=== PATIENT | male | born 1970 ===

== ENCOUNTER → 2023-10-02 | Outpatient (CLI) | payer BC ==
--- NOTE | 2023-10-02 14:33 | CT ---
EXAMINATION TYPE: CT brain wo con DATE OF EXAM: 10/02/2023 COMPARISON: None HISTORY: Dizziness, weakness in both legs, right ear tinnitus CT DLP: 1098.[address] of the brain was performed. The ventricles, basal cisterns and sulci overlying the cerebral convexities demonstrate mild enlargem ent. There is no evidence for intracranial hemorrhage or sulcal effacement. There is decreased attenuation about the periventricular white matter and deep white matter of both c erebral hemispheres, compatible with chronic small vessel ischemia. Differential diagnosis does inclu de demyelination. No mass effects are seen.No midline shift. Osseous calvarium is intact. If symptoms persist consider MRI. IMPRESSION: 1. Age related atrophic and chronic small vessel ischemic change without acute intracranial process s een at this time.
--- NOTE | 2023-10-02 16:43 | US ---
EXAMINATION TYPE: US carotid duplex BILAT DATE OF EXAM: 10/02/2023 COMPARISON: NONE CLINICAL INDICATION: Male, 53 years old with history of G45.9 TIA; TIA TECHNIQUE: Carotid duplex ultrasound examination. Indirect Doppler criteria was utilized. FINDINGS: EXAM MEASUREMENTS: RIGHT: Peak Systolic Velocity (PSV) cm/sec ----- Right CCA: 82.6 ----- Right ICA: 107 ----- Right ECA: 76.0 ICA/CCA ratio: 1.3 RIGHT: End Diastole cm/sec ----- Right CCA: 25.5 ----- Right ICA: 28.4 ----- Right ECA: 10.7 LEFT: Peak Systolic Velocity (PSV) cm/sec ----- Left CCA: 77.9 ----- Left ICA: 85.7 ----- Left ECA: 86.4 ICA/CCA ratio: 1.1 LEFT: End Diastole cm/sec ----- Left CCA: 24.9 ----- Left ICA: 30.8 ----- Left ECA: 11.4 VERTEBRALS (direction of flow): Right Vertebral: Antegrade Left Vertebral: Antegrade Rhythm: Normal RUBBER WORKER NOTES: no plaque, stenosis, elevated velocities or ratios IMPRESSION: Less than 50% stenosis at the carotid bifurcation. Criteria for Assigning % of Stenosis / Diameter reduction (Estimation based on the indirect measurements of the internal carotid artery velocities (ICA PSV). 1. Normal (no stenosis)=ICA PSV < 125 cm/s: ratio < 2.0: ICA EDV<40 cm/s. 2. Less than 50% stenosis=ICA PSV < 125 cm/s: ratio < 2.0: ICA EDV<40 cm/s. 3. 50 to 69% stenosis=ICA PSV of 125 to 230 cm/s: ration 2.0 ? 4.0: ICA EDV 40-100 cm/s. 4. Greater than 70% stenosis to near occlusion= ICA PSV > 230 cm/s: ratio > 4.0: ICA EDV > 100 cm/s. 5. Near occlusion= ICA PSV velocities may be low or undetectable: variable ratio and ICA EDV. 6. Total occlusion=unable to detect flow.
--- NOTE | 2023-10-03 07:41 | CA ---
Transthoracic Echo Report Name: Rashid Chun Age: 53 Gender: M : 1970 Exam Date: 10/02/2023 14:45 Exam Location: [facility] Ht (in): 64 Wt (lb): 185 Ordering Physician: Sherman Chun MD Attending/Referring Phys: Control Room Supervisor Teresa Frye RDCS Procedure CPT: Indications: G45.9 TRANSIENT CEREBRAL ISCHEMIC ATTACK, UNSPECIF Cardiac Hx: Technical Quality: Good Contrast 1: Agitated Saline Total Dose (mL): 10 Contrast 2: Total Dose (mL): MEASUREMENTS (Male / Female) Normal Values 2D ECHO LV Diastolic Diameter PLAX 5.3 cm 4.2 - 5.9 / 3.9 - 5.3 cm LV Systolic Diameter PLAX 3.5 cm IVS Diastolic Thickness 0.8 cm 0.6 - 1.0 / 0.6 - 0.9 cm LVPW Diastolic Thickness 1.0 cm 0.6 - 1.0 / 0.6 - 0.9 cm LV Relative Wall Thickness 0.3 LVOT Diameter 2.2 cm LV Diastolic Volume MOD BP 167.2 cm??? 67 - 155 / 56 - 104 cm??? LV Systolic Volume MOD BP 61.1 cm??? 22 - 58 / 19 - 49 cm??? LV Ejection Fraction MOD BP 63.5 % >= 55 % LV Cardiac Index MOD BP 2361.3 cm???/min???m??? LV Diastolic Volume MOD 4C 179.1 cm??? LV Systolic Volume MOD 4C 67.5 cm??? LV Ejection Fraction MOD 4C 62.3 % LV Cardiac Index MOD 4C 2483.6 cm???/min???m??? LV Diastolic Length 4C 9.0 cm LV Systolic Length 4C 7.0 cm LV Diastolic Volume MOD 2C 156.6 cm??? LV Systolic Volume MOD 2C 54.0 cm??? LV Ejection Fraction MOD 2C 65.5 % LV Cardiac Index MOD 2C 2282.9 cm???/min???m??? LV Diastolic Length 2C 9.0 cm LV Systolic Length 2C 6.8 cm LA Volume 86.5 cm??? 18 - 58 / 22 - 52 cm??? LA Volume Index 43.8 cm???/m??? 16 - 28 cm???/m??? Ascending Aorta Diameter 3.5 cm DOPPLER AV Peak Velocity 121.2 cm/s AV Peak Gradient 5.9 mmHg AV Mean Velocity 83.8 cm/s AV Mean Gradient 3.2 mmHg AV Velocity Time Integral 28.2 cm LVOT Peak Velocity 103.0 cm/s LVOT Peak Gradient 4.2 mmHg LVOT Velocity Time Integral 23.4 cm LVOT Stroke Volume 92.1 cm??? LVOT Stroke Volume Index 48.7 ml/m??? LVOT Cardiac Index 2049.3 cm???/min???m??? AV Area Cont Eq vti 3.3 cm??? AV Area Cont Eq pk 3.3 cm??? MV Area PHT 4.3 cm??? Mitral E Point Velocity 64.1 cm/s Mitral A Point Velocity 41.8 cm/s Mitral E to A Ratio 1.5 MV Deceleration Time 175.9 ms TR Peak Velocity 204.3 cm/s TR Peak Gradient 16.7 mmHg Right Atrial Pressure 5.0 mmHg Pulmonary Artery Systolic Pressu 21.7 mmHg Right Ventricular Systolic Press 21.7 mmHg PV Peak Velocity 105.1 cm/s PV Peak Gradient 4.4 mmHg FINDINGS Left Ventricle Left ventricular ejection fraction is estimated at 60-65 %. Mildly increased left ventricular diastolic volume. Mildly increased left ventricular systolic volume. No obvious regional wall motion abnormalities. Left ventricular wall thickness normal. Right Ventricle Normal right ventricular size and function. Right ventricular systolic pressure within normal limits. Right Atrium Right atrial dilatation. Left Atrium Severely increased left atrial volume. Mildly increased left atrial area. Mitral Valve Structurally normal mitral valve. No evidence for mitral valve prolapse. No mitral stenosis. Moderate mitral regurgitation. Aortic Valve Trileaflet aortic valve. No aortic valve stenosis or regurgitation. Tricuspid Valve Structurally normal tricuspid valve. No tricuspid stenosis. Trace tricuspid regurgitation. Pulmonic Valve Structurally normal pulmonic valve. No pulmonic stenosis. Trace pulmonic regurgitation. Pericardium No pericardial effusion. Aorta Normal size aortic root and proximal ascending aorta. CONCLUSIONS Normal LV systolic function. Mild LVH Moderate mitral regurgitation with a central jet Normal pulmonary artery systolic pressure Previewed by: Dr. Homero Friedman MD (Electronically Signed) Final Date: 03 October 2023 07:40
== END | disposition home or self-care (01) ==
LOC: RADCTMAIN 14:13
PROVIDERS: ATTEND Family Medicine
DX: I67.82 Cerebral ischemia (principal)
CPT/HCPCS: 70450; 93306; 93880

== ENCOUNTER → 2024-02-12 | Outpatient (CLI) | payer BC ==
[2024-02-12 13:22] LABS: Partial Thromboplastin Time 26.9 sec (22.0-30.0)
[2024-02-12 15:10] LABS: Appearance,Urine Clear (Clear); Bilirubin,Urine Negative (Negative); Blood,Urine Negative (Negative); Color,Urine Yellow (Yellow); Ketones,Urine Negative (Negative); Nitrite,Urine Negative (Negative); Specific Gravity,Urine 1.006 (1.001-1.030); Urobilinogen,Urine 0.2 E.U./DL
[2024-02-12 15:20] LABS: Bacteria,Urine None Seen (None Seen)
[2024-02-12 15:38] LABS: Basophils # (A) 0.07 X 10*3/uL (0.00-0.10); Basophils % (A) 0.8 %; Eosinophils # (A) 1.07 X 10*3/uL (0.04-0.35); Eosinophils % (A) 12.1 %; HCT 44.9 % (39.6-50.0); HGB 15.3 g/dL (13.0-17.0); Lymphocytes # (A) 1.67 X 10*3/uL (0.90-5.00); Lymphocytes % (A) 18.8 %; MCH 29.9 pg (27.0-32.0); MCHC 34.1 g/dL (32.0-37.0); MCV 87.9 FL (80.0-97.0); Monocytes # (A) 0.58 X 10*3/uL (0.20-1.00); Monocytes % (A) 6.5 %; NRBC Per 100 WBC 0 X 10*3/uL (0.00-0.01); Neutrophils # (A) 5.43 X 10*3/uL (1.80-7.70); Neutrophils % (A) 61.3 %; Platelet Count 255 X 10*3/uL (140-440); RBC 5.11 X 10*6/uL (4.40-5.60); RDW 13.1 % (11.5-14.5); WBC 8.86 X 10*3/uL (4.50-10.00)
[2024-02-12 16:36] LABS: BUN/Creat Ratio 9.33 Ratio (12.00-20.00); Blood Urea Nitrogen 8.4 mg/dL (9.0-27.0); Calcium 9.6 mg/dL (8.7-10.3); Carbon Dioxide 23.9 mmol/L (21.6-31.8); Chloride 103 mmol/L (96-109); Glucose 90 mg/dL (70-110); Potassium 4.6 mmol/L (3.5-5.5); Sodium 140 mmol/L (135-145)
--- NOTE | 2024-02-12 16:57 | XR ---
EXAMINATION TYPE: XR chest 2V DATE OF EXAM: 02/12/2024 COMPARISON: None HISTORY: 54-year-old male Z01.818, preoperative evaluation TECHNIQUE: Frontal and lateral views FINDINGS: The cardiomediastinal silhouette, aorta, and pulmonary vasculature are within normal limits. Lungs an d pleural spaces are clear. IMPRESSION: No acute cardiopulmonary process. [facility], , 02/12/2024 4:55 PM
[2024-02-12 18:20] LABS: INR 0.9 (<1.2); Prothrombin Time 10.4 sec (10.0-12.5)
== END | disposition home or self-care (01) ==
LOC: LABPAT 12:35
PROVIDERS: ATTEND Orthopaedic Surgery Orthopaedic Surgery of the Spine
CPT/HCPCS: 36415; 71046; 80048; 81001; 85025; 85610; 85730; 86850; 86900; 86901; 87070

== ENCOUNTER 2024-02-21 05:42 | Observation (INO) | payer BC ==
[2024-02-16 10:31] VITALS: BMI 32.5
[2024-02-21] MEDS: LACTATED RINGERS 1,000 ML IV SCH (06:37)
[2024-02-21] MEDS: IV FLUID CONTINUATION 1,000 ML IV ONE ×2 (06:37)
[2024-02-21] MEDS: ONDANSETRON 4 MG/2 ML VIAL IVP ONE (06:45)
[2024-02-21] MEDS: DEXAMETHASONE SOD PHOSPHATE 4 MG/ML 1 ML VIAL IV ONE (06:46)
[2024-02-21] MEDS ORDERED: ACETAMINOPHEN IV (For NPO) 1,000 MG/100 ML VIAL ONE (07:24)
[2024-02-21] MEDS ORDERED: ePHEDrine 50 MG/ML 1 ML VIAL ONE (07:24)
[2024-02-21] MEDS ORDERED: TRANEXAMIC 1,000 MG/100ML-NACL PREMIX BAG ONE (07:24)
[2024-02-21] MEDS ORDERED: PHENYLEPHRINE 10 MG/ML VIAL ONE (07:24)
[2024-02-21] MEDS ORDERED: SUCCINYLCHOLINE CHLORIDE 200 MG/10 ML VIAL IV ONE (07:24)
[2024-02-21] MEDS ORDERED: KETAMINE HCL IN 0.9 % NACL 50 MG/5 ML SYRINGE ONE (07:24)
[2024-02-21] MEDS ORDERED: PROPOFOL 10 MG/ML 20 ML VIAL IV ONE (07:24)
[2024-02-21] MEDS ORDERED: MIDAZOLAM 2 MG/2 ML VIAL ONE (07:24)
[2024-02-21] MEDS ORDERED: fentaNYL (PF) 50 MCG/ML 2 ML AMP ONE (07:24)
[2024-02-21] MEDS ORDERED: ROCURONIUM 10 MG/ML (5 ML VIAL) IV ONE (07:24)
[2024-02-21] MEDS ORDERED: NEOSTIGMINE 1 MG/ML 10 ML VIAL ONE (07:24)
[2024-02-21] MEDS ORDERED: GLYCOPYRROLATE 0.2 MG/ML 2 ML VIAL ONE (07:24)
[2024-02-21] MEDS ORDERED: LIDOCAINE 1% INJ 10MG/ML (20 ML MDV) ONE (07:24)
[2024-02-21] MEDS: ceFAZolin 1,000 MG in SODIUM CHLORIDE 0.9% 1,000 ML IRRIGATION ONE ×2 (07:30→13:39)
[2024-02-21] MEDS: THROMBIN (BOVINE) 5,000 UNIT VIAL MISCELLANE ONE (08:12)
[2024-02-21] MEDS: BUPIVACAINE (PF) 0.25% 30 ML VIAL SQ ONE (08:12)
[2024-02-21] MEDS: LIDOCAINE 2%-EPI 1:100,000 20 ML VIAL SQ ONE (08:12)
[2024-02-21] MEDS ORDERED: TRANEXAMIC 1,000 MG/100ML-NACL 1,000 MG in SALINE 1 100ML.BAG IVPB PRN (08:35)
[2024-02-21] MEDS: LACTATED RINGERS 1,000 ML IV ONE (09:00)
[2024-02-21] MEDS ORDERED: BENZOCAINE/MENTHOL LOZENG 1 EACH LOZENGE MUCOUS MEM PRN (11:32)
[2024-02-21] MEDS ORDERED: ONDANSETRON 4 MG/2 ML VIAL IVP PRN (11:32)
[2024-02-21] MEDS ORDERED: CYCLOBENZAPRINE 10 MG TAB PO PRN (11:35)
--- NOTE | 2024-02-21 11:49 | P.OP ---
Date of Procedure: 02/21/24 Preoperative Diagnosis: Grade 3 spondylolisthesis L5-S1, spinal stenosis L4-5 L5-S1, low back pain, degenerative disc disease, facet arthrosis, right lower extremity radiculopathy Postoperative Diagnosis: Same Anesthesia: GETA Pathology: none sent Condition: stable Disposition: PACU Description of Procedure: DESCRIPTION OF PROCEDURE(S): BRIEF OPERATIVE NOTE Preoperative Diagnosis: Grade 3 spondylolisthesis L5-S1, spinal stenosis L4-5 L5-S1, low back pain, degenerative disc disease, facet arthrosis, right lower extremity radiculopathy Postoperative Diagnosis: Same Procedure: Laminectomy and decompression L4-5 L5-S1 with wide bilateral foraminotomies Computer CT navigation aided open posterior lateral decompression and fusion L4-5 L5-S1 Transforaminal lumbar interbody fusion for a 360 fusion at L4-5 Discectomy for decompression at L4-5 Placement of interbody graft L4-5 Use of computer navigation for fusion L4-5 S1 Local autogenous bone grafting Aspiration of bone marrow from the vertebral body pedicle at L4 on the right Use of bone graft extenders Surgeon: Dr. Bush Trailer Truck Driver: Louie BALL who is present throughout the entire the case persistence during positioning, dissection, exposure, visualization, and all crucial elements of the case as well as closure. Anesthesia: General anesthesia Estimated blood loss: Approximately 350 mL Complications: None apparent Components implanted: K2M cannulated [place] pedicle screw system withscrews measuring 6.5 mm, 5.5 mm and 7.5 mm in diameter to rods one expandable interbody cage with 10 mL of osteo amp bio4 bone graft substitute and 30 mL of the BX bone fibers to supplement the local autogenous bone graft and bone marrow aspirate Disposition: To recovery room in good stable condition. OPERATIVE INDICATIONS The patient has had severe issues at their lower extremity in her lower back over the past several years with significant worsening over the past several months. Over the past few months the patient had pain at their back and their lower extremities. The patient is having severe radicular symptoms at their lower extremity with weakness. The patient was having great difficulty with regular activities and with his work. The patient is having significant pain in their back. They are unable to obtain any comfort. We did aggressive conservative treatment with medications therapy and interventional pain management however thery were not having any relief. The patient also showed evidence of a grade 3 listhesis at L5-S1 . The patient has been through conservative treatment. We discussed various treatment options including surgery, and the patient wishes to proceed with surgery We discussed the risk, patient's alternatives and benefits of surgery including but not limited to, risk of bleeding risk of infection, risk of need for further surgery, risk of decreased, loss of motion, muscle function, malunion nonunion, hardware failure, nerve damage, paralysis, heart attack, blindness and . They understood i ssues with the current pandemic and the possibility of exposure. OPERATIVE SUMMARY After discussing all the risks, patient alternatives and benefits at length, the patient elected to proceed with surgical intervention, signed informed consent, and presented for their procedure. The patient was seen and examined in the preoperative holding area and the surgical site was marked. The patient was given antibiotics and brought to the operating room. The patient was sedated and intubated by anesthesia in standard fashion. The patient was positioned on to the operating room table in a prone position on the appropriate frame which was well-padded and well molded. We were careful to pad any bony prominences and pressure points. We were careful to maintain the patient's cervical spine and good neutral alignment and position throughout. The patient was prepped and draped in a normal standard fashion. An appropriate timeout and keystone protocol performed. We were able to proceed with the surgery. The local wound area was infiltrated with local anesthetic. I used an open approach with the midline incision from L4-S1 approximately 5 inches in length. I dissected down over the spinous processes over the lamina and over the bilateral facet joints down to the transverse processes and sacral ala from L4-S1. It was very obvious where the listhesis was and there was an obviously unstable [place] fragment at L5. The facets had severe facet arthrosis bilaterally. I was able to place a reference guide over the spinous process with appropriate connector to establish an appropriate reference point for the Ziem CT navigation. We then were able to place patient in an appropriate drape and do a navigation spin for visualization and 3-D reconstruction of the lumbar spine. I was able utilize C-arm guidance and navigation to establish appropriate position over the pedicles bilaterally at the appropriate levels . With the appropriate levels and approach confirmed . Utilizing the computer navigation device as well as direct visualization I was able to establish bony landmarks at the right iliac crest for a bony reference point for the navigation device. I was able to establish a Jamshidi needle over the lateral aspect of the pedicle and advanced the trocar into the pedicle being careful not to breech superiorly inferiorly medially or laterally using computer navigation device. Position was confirmed regularly with AP and lateral images on C-arm and with the computer navigation device at the appropriate levels bilaterally. I was able to establish the trocar into the pedicle appropriately into the posterior aspect of the vertebral body bilaterally at the appropriate levels. This was done at each of the pedicle positions and each of the vertebrae. I did this at L4-L5 and S1 bilaterally. At the superior vertebrae I was able to take approximately 15 mL of bone aspiration for use later in the case to supplement the allograft and autograft bone. I was able place the guidewire into the trocar and into the vertebral body appropriately under C-arm guidance. Dissection was taken down over the wire to the appropriate starting position for the screw placed. The appropriate length screw was chosen, threaded over the guidewire and screwed appropriately into the pedicle and vertebral body under C- arm guidance in excellent alignment and position with good bony purchase. This is done at each of the screw sites at the appropriate levels at L4-L5 and S1.. The screws were checked and did not have any stimulation ove up to 15 to 24 mA. I was able to then turned my attention to the decompression. There is a large obvious Urbina fragment and step-off and the entire Urbina fragment of L5 was removed and saved and morselized for local at times bone graft. I was able to use a combination of curettes and Kerrison rongeurs and a high-speed drill to take down the facet joint and do a facetectomy. I was able get excellent foraminal decompression and central decompression with undermining across midline to perform a laminectomy centrally and contralaterally. As able get good central decompression. The ligamentum flavum was taken down to further decompress centrally and at bilateral neural foramen. At L5-S1 there is no availability for the angle for the disc and I was unable to get any reduction of the listhesis. There is seem to be bridging osteophyte preventing any access to the disc space. At L4-5 is able to gain access to the disc space. I was able to expose the disc space and visualize the traversing nerve root. Note was made of some disc protrusion and disc herniation that was abutting the traversing nerve root at the level causing further compression of the nerve root. I was able to establish a annulotomy at the appropriate level at L4-5 protecting soft tissue and neural structures. Note was made of some disc desiccation at the disc. I performed a complete discectomy with accommodation of curettes and rasps and scrapers. I was able get good endplate preparation at the disc space. I sized for the appropriate size interbody spacer protecting the soft tissue and neural structures. The wound was copiously irrigated and suctioned dry. There is no evidence of any dural tear or leak. I was able to pack the disc space with local autogenous bone graft as well as a small amount of bone graft which was also placed into the interbody cage itself. Protecting the soft tissue structures and neural structures I was able place the interbody cage in good alignment and good position with good fit and fill at the interbody space. Position was confirmed with C-arm guidance. Good hemostasis maintained. There is no evidence of any dural tear or leak. The wound was irrigated and suctioned dry. With the hardware intact, intraoperative C-arm imaging was again taken which showed good alignment and position of the hardware at the appropriate levels. We were then able to measure, contour and place the rods and appropriate hardware bilaterally. I was able to place capcrews, tighten them down, and torque them with the torque screwdriver appropriately. With this intact I was able to place the local autogenous bone graft with additional bone graft enhancer as necessary into the posterior lateral gutters over the decorticated transverse processes and facet joints on the contralateral side. The remainder of the bone graft was placed over the facet joint on the contralateral side after taking down the facet joint capsule. With the bone graft intact, a stable construct, and good decompression at the appropriate levels, we were able to proceed with closure. Good hemostasis was maintained. There is no evidence of dural tear or leak. The fascia was closed for a watertight closure. he subcuticular tissue was closed with absorbable suture. The wound was cleaned and dried and dressed with the appropriate dressing. The drapes were broken down. The patient was gently rolled back onto their hospital bed being careful to maintain their cervical spine and good neutral alignment and position. They were woken up by anesthesia, extubated, and brought to the recovery room in good stable condition. The patient will be admitted to the hospital for appropriate postoperative care, medical management and monitoring. We will continue to follow them closely about the postoperative course.
--- NOTE | 2024-02-21 12:08 | FL ---
Fluoroscopy INDICATION: Pain FINDINGS: Fluoroscopy time: 27 seconds. Total dose area product (DAP) in uGy*m?, mGy*cm? (or similar): 11.26 Images obtained: 0. IMPRESSION: 1. Documentation of fluoroscopy. [facility], , 02/21/2024 12:05 PM
[2024-02-21] MEDS: HYDROmorphone 0.5 MG/0.5 ML SYRINGE IVP PRN (12:18)
[2024-02-21] MEDS: SODIUM CHLORIDE 0.9% 1,000 ML IV SCH (13:39)
[2024-02-21] MEDS: SERTRALINE 100 MG TAB PO SCH (13:40)
[2024-02-21] MEDS: HYDROcodone/APAP 5-325MG 1 EACH TAB PO PRN (15:37)
[2024-02-21] MEDS: CYCLOBENZAPRINE 10 MG TAB PO PRN (15:37)
[2024-02-21] MEDS: HYDROmorphone 2 MG/ML 1 ML SYRINGE IVP PRN (16:46)
[2024-02-22 08:28] LABS: Basophils # (A) 0.02 X 10*3/uL (0.00-0.10); Basophils % (A) 0.2 %; Eosinophils # (A) 0.14 X 10*3/uL (0.04-0.35); Eosinophils % (A) 1.2 %; HCT 35.4 % (39.6-50.0); HGB 11.8 g/dL (13.0-17.0); Lymphocytes # (A) 1.24 X 10*3/uL (0.90-5.00); Lymphocytes % (A) 10.7 %; MCH 30.1 pg (27.0-32.0); MCHC 33.3 g/dL (32.0-37.0); MCV 90.3 FL (80.0-97.0); Monocytes # (A) 0.71 X 10*3/uL (0.20-1.00); Monocytes % (A) 6.1 %; NRBC Per 100 WBC 0 X 10*3/uL (0.00-0.01); Neutrophils # (A) 9.43 X 10*3/uL (1.80-7.70); Neutrophils % (A) 81.5 %; Platelet Count 201 X 10*3/uL (140-440); RBC 3.92 X 10*6/uL (4.40-5.60); RDW 13.2 % (11.5-14.5); WBC 11.58 X 10*3/uL (4.50-10.00)
--- NOTE | 2024-02-22 08:42 | P.CONS ---
History of Present Illness - Reason for Consult Consult date: 02/22/24 - History of Present Illness This is a 54-year-old male admitted for a laminectomy and decompression L4-5 L5- S1 with wide bilateral foraminotomies with Dr. Bush. Patient has a history of chronic lower back pain and urinary incontinence. Patient is seen this morning laying in bed. He reports his pain is somewhat uncontrolled and he is having a difficult time getting comfortable. Vitals are stable. Further medical history as noted below. Review of Systems Constitutional: Denies chills, Denies fever Cardiovascular: Denies chest pain, Denies dyspnea on exertion Respiratory: Denies cough, Denies dyspnea Gastrointestinal: Denies abdominal pain, Denies nausea, Denies vomiting Musculoskeletal: Reports low back pain Neurological: Denies headaches, Denies weakness Past Medical History Past Medical History: Hearing Disorder / Deafness, Osteoarthritis (OA), Sleep Apnea/CPAP/BIPAP Additional Past Medical History / Comment(s): "Tone deaf." CPAP use. History of Any Multi-Drug Resistant Organisms: None Reported Past Surgical History: Hernia Repair, Orthopedic Surgery Additional Past Surgical History / Comment(s): Right shoulder surgery, left inguinal hernia. Past Anesthesia/Blood Transfusion Reactions: No Reported Reaction Smoking Status: Former smoker - Past Family History Mother Family Medical History: No Reported History Medications and Allergies Home Medications Medication Instructions Recorded Confirmed Type Cyclobenzaprine [Flexeril] 10 mg PO TID PRN 02/16/24 02/21/24 History HYDROcodone/APAP 5-325MG [Oakley 1 tab PO TID PRN 02/16/24 02/21/24 History 5-325] Sertraline HCl 150 mg PO PC-LUNCH 02/16/24 02/21/24 History Allergies Allergy/AdvReac Type Severity Reaction Status Date / Time No Known Allergies Allergy Verified 02/21/24 06:10 Physical Exam Vitals: Vital Signs Temp Pulse Pulse Resp BP Pulse Ox 02/22/24 07:52 98.1 F 76 16 113/66 97 02/22/24 00:45 97.8 F 85 20 108/64 97 02/21/24 21:32 98.0 F 73 18 113/60 98 02/21/24 19:05 98.0 F 91 20 114/68 95 02/21/24 15:05 83 131/67 98 02/21/24 14:50 100 125/67 93 L 02/21/24 14:35 102 H 134/82 94 L 02/21/24 14:20 101 H 122/83 94 L 02/21/24 14:05 85 127/79 95 02/21/24 13:50 95 125/80 93 L 02/21/24 13:40 84 126/76 93 L 02/21/24 13:25 95 125/78 93 L 02/21/24 13:15 105 H 136/83 92 L 02/21/24 13:00 97.7 F 89 16 123/79 92 L 02/21/24 12:45 93 16 141/72 02/21/24 12:30 72 16 135/71 97 02/21/24 12:15 90 16 158/88 97 02/21/24 12:00 85 16 146/93 99 02/21/24 11:45 93 16 146/93 96 02/21/24 11:37 98.5 F 103 H 12 121/70 95 Intake and Output 02/21/24 02/22/24 02/22/24 22:59 06:59 14:59 Output Total 825 Balance -825 Output: Drainage 200 Lower Back 200 Urine 625 Other: Voiding Method Indwelling Catheter - Constitutional General appearance: cooperative, no acute distress - EENT Eyes: PERRLA - Neck Neck: no lymphadenopathy, normal ROM, no rigidity - Respiratory Respiratory: bilateral: CTA - Cardiovascular Rhythm: regular Heart sounds: normal: S1, S2 - Gastrointestinal General gastrointestinal: soft, no tenderness - Integumentary Integumentary: normal, normal turgor - Psychiatric Psychiatric: A&O x's 3, appropriate affect, intact judgment & insight Results CBC & Chem 7: 02/22/24 03:14 Labs: Abnormal Lab Results - Last 24 Hours (Table) 02/22/24 Range/Units 03:14 WBC 11.58 H (4.50-10.00) X 10*3/uL RBC 3.92 L (4.40-5.60) X 10*6/uL Hgb 11.8 L (13.0-17.0) g/dL Hct 35.4 L (39.6-50.0) % Neutrophils # 9.43 H (1.80-7.70) X 10*3/uL Assessment and Plan (1) Spondylolisthesis, lumbar region Current Visit: Yes Status: Acute Code(s): M43.16 - SPONDYLOLISTHESIS, LUMBAR REGION SNOMED Code(s): 798662722229278 (2) Chronic back pain Current Visit: Yes Status: Acute Code(s): M54.9 - DORSALGIA, UNSPECIFIED; G89.29 - OTHER CHRONIC PAIN SNOMED Code(s): 378176953 (3) Status post laminectomy Current Visit: Yes Status: Acute Code(s): Z98.890 - OTHER SPECIFIED POSTPROCEDURAL STATES SNOMED Code(s): 365369191 (4) History of BPH Current Visit: Yes Status: Acute Code(s): Z87.438 - PERSONAL HISTORY OF OTHER DISEASES OF MALE GENITAL ORGANS SNOMED Code(s): 852464968 Plan: Check CBC and CMP in the morning. Continue to follow post-op instructions. Patient seen and evaluated by nurse practitioner. Physician in agreement with plan.
[2024-02-22] MEDS: SENNOSIDES-DOCUSATE SODIUM 1 EACH TAB PO SCH (08:44)
[2024-02-22 08:45] LABS: Blood Urea Nitrogen 10.8 mg/dL (9.0-27.0); Calcium 8.5 mg/dL (8.7-10.3); Carbon Dioxide 27.5 mmol/L (21.6-31.8); Chloride 102 mmol/L (96-109); Glucose 104 mg/dL (70-110); Sodium 138 mmol/L (135-145)
[2024-02-22] MEDS: diazePAM 5 MG TAB PO PRN (11:14)
--- NOTE | 2024-02-22 13:09 | P.PN ---
Progress Note - Text Progress Note Date: 02/22/24 Postoperative day #1 Patient is seen and examined today at bedside. The patient has some pain around the surgical site as expected. Pain is being controlled to some degree with medication. His Singer has been discontinued but he has not yet been able to void Physical Exam Afebrile with stable vital signs Abdomen is soft nontender. Chest has good excursion deep and space expiration The incision site is clean dry and intact. No erythema there is no purulence. The dressing is still intact and the drain is intact with minimal drainage Extremities have not had neurologic change from prior to surgery. He has sustained dorsiflexion plantarflexion EHL Calves and thighs were soft nontender without evidence of DVT. Assessment/Plan Postoperative day #1 status post open decompression fusion L4-5 L5-S1 for spondylolisthesis with stenosis Patient is progressing as expected from the surgery. He is having significant pain in his lower back but he has been able to get up to a chair already today. We will continue to increase the patient's mobilization with therapy. We will continue pain control with oral or IV medications. I think we need to control his pain a little bit better and we will make his oral medication on a scheduled basis every 4 hours with [place] 7.5 mg. After the tomorrow evening we can start to make it on a as needed basis rather than scheduled. We'll continue to follow patient closely.
[2024-02-22] MEDS: HYDROcodone/APAP 7.5-325MG 1 EACH TAB PO SCH (13:41)
[2024-02-22] MEDS: HYDROcodone/APAP 10-325MG 1 EACH TAB PO SCH (21:24)
[2024-02-23] MEDS: HYDROcodone/APAP 10-325MG 1 EACH TAB PO SCH (01:41)
[2024-02-23 09:35] LABS: HCT 38.5 % (39.6-50.0); HGB 12.6 g/dL (13.0-17.0); MCH 30.1 pg (27.0-32.0); MCHC 32.7 g/dL (32.0-37.0); MCV 92.1 FL (80.0-97.0); Mean Platelet Volume 11.2 FL (9.5-12.2); NRBC Per 100 WBC 0 X 10*3/uL (0.00-0.01); Platelet Count 204 X 10*3/uL (140-440); RBC 4.18 X 10*6/uL (4.40-5.60); WBC 13.72 X 10*3/uL (4.50-10.00)
[2024-02-23 09:38] LABS: ALT 27 U/L (10-49); AST 54 U/L (14-35); Alkaline Phosphatase 67 U/L (41-126); BUN/Creat Ratio 12.25 Ratio (12.00-20.00); Blood Urea Nitrogen 9.8 mg/dL (9.0-27.0); Calcium 8.3 mg/dL (8.7-10.3); Carbon Dioxide 24.1 mmol/L (21.6-31.8); Chloride 102 mmol/L (96-109); Glucose 91 mg/dL (70-110); Potassium 4.1 mmol/L (3.5-5.5); Sodium 138 mmol/L (135-145); Total Bilirubin 1.1 mg/dL (0.3-1.2)
--- NOTE | 2024-02-23 12:48 | P.PN ---
Progress Note - Text Progress Note Date: 02/23/24 Postoperative day #2 Patient is seen and examined today at bedside. The patient has some pain around the surgical site as expected. His pain is better controlled today he is tolerating his diet well. He is voiding freely. He is passing gas. He has not yet had a bowel movement. He has been able to be more mobile today pain is being controlled with medication. Physical Exam Afebrile with stable vital signs Abdomen is soft nontender. Chest has good excursion deep and space expiration The incision site is clean dry and intact. No erythema there is no purulence. There is no drainage. The the drain has been removed. There is no further leakage at this point. Extremities have not had neurologic change from prior to surgery. He has sustained worse flexion plantarflexion EHL intact Calves and thighs were soft nontender without evidence of DVT. Assessment/Plan Postoperative day #3 status post open decompression fusion L4-5 L5-S1 for spondylolisthesis with stenosis and lower EXTR radiculopathy Patient is progressing as expected from the surgery. He started to make good pr ogress in terms of his pain control and his overall mobility. He is voiding well and tolerating his diet without any nausea or vomiting. He is passing gas adequately We will continue to increase the patient's mobilization with therapy. We will continue pain control with oral or IV medications. He seems to be slowly turned the corner and once he is able to mobilize a bit better and control his pain will be okay for discharge home possibly tomorrow or Monday. We'll continue to follow patient closely.
[2024-02-23] MEDS: HYDROmorphone 1 MG/ML 1 ML SYRINGE IVP PRN (19:56)
[2024-02-23] MEDS ORDERED: HYDROcodone/APAP 10-325MG 1 EACH TAB PO SCH (21:30)
[2024-02-24 08:41] VITALS: BP 143/66; PULSE 87; RESP 18; TEMP 98.2
--- NOTE | 2024-02-24 08:56 | P.DS ---
Providers Date of admission: 02/22/24 12:21 Attending physician: Santos Bush Consults: 02/21/24 11:32 Consult Physician Routine Consulting Provider: Sherman Chun Consult Reason/Comments: Medical management Do you want consulting provider notified?: Yes Primary care physician: Sherman Chun Hospital Course: The patient presented on the day of admission as per their operative note. He underwent open decompression fusion at L4-5 L5-S1 for his severe spondylolisthesis with spinal stenosis. He has been making slow but steady progress here in the hospital. He is converting over to oral medications from the IV and controlling the pain adequately. He is tolerating his regular diet. He is voiding freely passing gas well. He is ambulating well in the room on his own with a walker Physical Exam The incision site is clean dry and intact. There is no erythema no drainage. There is no purulence no evidence of infection. His back is clear Abdomen soft and nontender. Chest has good excursion with deep inspiration and expiration. The patient has active and passive range of motion intact at the upper and lower extremities. There is no acute change in neurologic status. He has sustained dorsiflexion plantarflexion EHL intact Hospital Course Postoperative day #3 status post open decompression fusion L4-5 L5-S1 for spondylolisthesis with spinal stenosis and lower extreme radiculopathy the patient has been making gradual but good progress postoperatively. They have completed the prophylactic antibiotics without any signs or symptoms of infection. The patient has been able to advance their diet, and is tolerating diet adequately. The pain was initially controlled with IV medications and is now controlled appropriately with oral medications. The patient has been able to increase their mobilization. The patient has progressed appropriately. I think they are in good stable condition for discharge today if his pain is controlled adequately with orals alone and he is able to have a bowel movement. If he goes home today, they will be sent home with appropriate prescriptions. I answered their questions to the best of my ability in a language that they can understand and they are agreeable with the plan. They will follow up as directed. Patient Condition at Discharge: Good Plan - Discharge Summary Discharge Rx Participant: Yes New Discharge Prescriptions: New HYDROcodone/APAP 7.5-325MG [[place] 7.5-325] 1 tab PO Q4H PRN 7 Days #42 tab PRN Reason: Pain HYDROcodone/APAP 10-325MG [[place] 10-325] 1 tab PO Q4HR PRN 7 Days #42 tab PRN Reason: Pain No Action Sertraline HCl 150 mg PO PC-LUNCH HYDROcodone/APAP 5-325MG [[place] 5-325] 1 tab PO TID PRN PRN Reason: Pain Cyclobenzaprine [Flexeril] 10 mg PO TID PRN PRN Reason: Muscle Spasm Discharge Medication List Cyclobenzaprine [Flexeril] 10 mg PO TID PRN 02/16/24 [History] HYDROcodone/APAP 5-325MG [[place] 5-325] 1 tab PO TID PRN 02/16/24 [History] Sertraline HCl 150 mg PO PC-LUNCH 02/16/24 [History] HYDROcodone/APAP 7.5-325MG [[place] 7.5-325] 1 tab PO Q4H PRN 7 Days #42 tab 02/23/24 [Rx] HYDROcodone/APAP 10-325MG [[place] 10-325] 1 tab PO Q4HR PRN 7 Days #42 tab 02/24/24 [Rx] Follow up Appointment(s)/Referral(s): Santos Bush DO [Doctor of Osteopathic Medicine] - 2 Weeks Activity/Diet/Wound Care/Special Instructions: Keep site clean. May shower with waterproof Tegaderm intact. Do not soak in a tub. After 72 hours postoperatively, patient May remove dressing and then may shower with area uncovered. Leave glue intact and allow it to fray off on its own. May ambulate as tolerated. Avoid heavy or rigorous activity. No repetitive bending twisting or lifting. No overhead work. Discharge Disposition: HOME SELF-CARE
--- NOTE | 2024-02-24 13:53 | P.PN ---
Subjective Progress Note Date: 02/24/24 This is a 54-year-old male admitted for a laminectomy and decompression L4-5 L5- S1 with wide bilateral foraminotomies with Dr. Bush. Patient has a history of chronic lower back pain and urinary incontinence. 02/23. Patient seen and examined. States back pain has improved. Denies any chest pain or shortness of breath. REVIEW OF SYSTEMS: CONSTITUTIONAL: No fever, no malaise,. CARDIOVASCULAR: No chest pain, no palpitations, no syncope. PULMONARY: No shortness of breath, no cough, GASTROINTESTINAL: No diarrhea, no nausea, no vomiting, no abdominal pain. NEUROLOGICAL: No headaches, no weakness, PHYSICAL EXAMINATION: GENERAL: The patient is alert and oriented x3, not in any acute distress. Well developed, well nourished. HEENT: Pupils are round and equally reacting to light. EOMI. No scleral icterus. No conjunctival pallor. Normocephalic, atraumatic. No pharyngeal erythema. No thyromegaly. CARDIOVASCULAR: S1 and S2 present. No murmurs, rubs, or gallops. PULMONARY: Chest is clear to auscultation, no wheezing or crackles. ABDOMEN: Soft, nontender, nondistended, normoactive bowel sounds. No palpable organomegaly. MUSCULOSKELETAL: No joint swelling or deformity. EXTREMITIES: No cyanosis, clubbing, or pedal edema. NEUROLOGICAL: Gross neurological examination did not reveal any focal deficits. SKIN: Various surgical incision seen Assessment and plan (1) Spondylolisthesis, lumbar region (2) Chronic back pain (3) Status post laminectomy (4) History of BPH Monitor vital signs Monitor CBC Monitor CMP Status post open decompression fusion L4-5 L5-S1 for spondylolisthesis Continue pain management per orthopedics Continue DVT prophylaxis per orthopedics Resume home meds PT and OT following Labs and medication were reviewed.. Continue same treatment. Continue with symptomatic treatment. Resume home medication. Monitor labs and vitals. DVT and GI prophylaxis. Further recommendations as per clinical course of the patient Dictation was produced using [employer] dictation software. please excuse any grammatical, word or spelling errors. Objective - Vital Signs Vital signs: Vital Signs Temp 98.2 F 02/24/24 07:10 Pulse 87 02/24/24 07:10 Resp 18 02/24/24 07:10 BP 143/66 02/24/24 07:10 Pulse Ox 96 02/24/24 07:10 FiO2 Intake & Output 02/23/24 02/24/24 02/24/24 18:59 06:59 18:59 Intake Total 320 Balance 320 Intake: Oral 320 Other: Voiding Method Toilet # Voids 2 2 - Labs CBC & Chem 7: 02/23/24 04:08 02/23/24 04:08
== END 2024-02-24 14:09 | disposition home or self-care (01) ==
LOC: OR 05:42 → 4SSUR 11:16 → OR 02-22 12:21 → 4SSUR 02-22 12:21
PROVIDERS: ADMIT Orthopaedic Surgery Orthopaedic Surgery of the Spine; ATTEND Orthopaedic Surgery Orthopaedic Surgery of the Spine
DX: M43.17 Spondylolisthesis, lumbosacral region (principal); M48.07 Spinal stenosis, lumbosacral region; M19.90 Unspecified osteoarthritis, unspecified site; M54.17 Radiculopathy, lumbosacral region; G89.29 Other chronic pain; N40.0 Benign prostatic hyperplasia without lower urinary tract symptoms; R32 Unspecified urinary incontinence; Z87.891 Personal history of nicotine dependence
CPT/HCPCS: 20930; 20936; 22612; 22614; 22853; 61783; C9757; 72100; 80048; 80053; 85025; 85027; 86891

== ENCOUNTER → 2024-11-14 | Outpatient (CLI) | payer BC ==
[2024-11-14 10:12] VITALS: BP 131/81; PULSE 52; RESP 16; TEMP 97.9
--- NOTE | 2024-11-14 11:29 | P.SLEEP ---
History of Present Illness DATE: 11/14/2024 CONSULTATION/NEW PATIENT EVALUATION HISTORY OF PRESENT ILLNESS/SLEEP-WAKE EVALUATION: 54-year-old gentleman had b een evaluated in the sleep center for obstructive sleep apnea hypopnea syndrome. Patient has history of obstructive sleep apnea diagnosed about 5 years ago in another institution. Patient is on treatment with CPAP, but recently developed some problems with CPAP unit. I checked CPAP unit. CPAP pressure is 8 cm of water a ramp is an Auto regimen, starting at 4 and pressure in CPAP unit always is at the level 4 centimeters of water. CPAP unit do not allowed me to switch parameters of ramp. CPAP unit needs to be fixed or replaced. Patient received his CPAP unit from [facility], phone #[phone]. SLEEP SCHEDULE: Usually sleep schedule 10 PM to 56 AM. FALLING ASLEEP: No problems with falling asleep. DURING SLEEP: Patient wakes up from sleep up to 3 times. No history of hypnog ogical hallucinations, sleep paralysis, or cataplexy. Positive history of violent movements during sleep. DURING THE DAY/WAKE STATE: Patient may feel sleepiness during the day. [place] sleepiness scale is increased to 11. Patient takes nap at 4 PM. PAST MEDICAL HISTORY: PTSD. PAST SURGICAL HISTORY: Spinal fusion, right shoulder surgery. MEDICATIONS: Please see below. SOCIAL HISTORY: Please see below. FAMILY HISTORY: Please see below. REVIEW OF SYSTEMS: Violent movements during the sleep, awakenings from sleep. No fevers. No double vision. No recent chest pain. No shortness of breath. No abdominal pain. No bleeding episodes. No blood in urine. No seizure episodes. PHYSICAL EXAMINATION: GENERAL: A pleasant patient without any distress. VITAL SIGNS: Please see below, weight 183 pounds, BMI 31.4. HEENT: PERRLA, EOMI. Evaluation of oropharynx showed tongue protrudes midline, low position of soft palate Mallampati 23, short distance between soft palate and pharyngeal wall. NECK: Supple. No JVD. Thyroid is not palpable. 16.5 inches in circumference. LUNGS: Clear to percussion and to auscultation. Good air exchange. No wheezing or rhonchi. HEART: S1, S2 regular. No murmurs, gallops or rubs. ABDOMEN: Soft and nontender. Bowel sounds are present. No organomegaly appreciated. EXTREMITIES: No clubbing or cyanosis. EDUCATION PROGRAM COORDINATOR: Awake, alert, and oriented x3. Cranial nerves 2 to 7 intact. There is no fasciculation or atrophy noted. No focal deficits observed. ASSESSMENT: 1. Obstructive sleep apnea hypopnea syndrome for 5 years diagnosed in another institution. CPAP unit does not work well. 2. Violent movements during sleep, possibly REM sleep behavioral disorder. 3. PTSD. 4. Status post spinal fusion. 5 status post right shoulder surgery. 6. Very minimal obesity by BMI 31.4 PLAN: 1. To get results of previous diagnostic sleep study. 2. CPAP titration for evaluation of affective CPAP pressure at the present time and also to check for possible REM sleep behavioral disorder. 3. Preferable position during sleep on the side. 4. No driving if patient feels any sleepiness. Patient is aware of civil and criminal liability for unsafe driving. 5. Sleep hygiene with regular sleep time for at least 7.5-8 hours. 6. Watching weight. 7. Prescription to fix or replace CPAP unit with changing regimen of treatment to AutoPap with a pressure 6 to 11 cm of water. Thank you very much for referring this patient for consultation. Sincerely, Gray Singh MD, PhD, FAASM. Diplomat of [place] [employer], Sleep Medicine Board by [place] [employer] [place] [employer] [facility] Nunnelly cc: Sherman Chun MD Past Medical History Past Medical History: Hearing Disorder / Deafness, Osteoarthritis (OA), Sleep Apnea/CPAP/BIPAP Additional Past Medical History / Comment(s): "Tone deaf." CPAP use. History of Any Multi-Drug Resistant Organisms: None Reported Past Surgical History: Hernia Repair, Orthopedic Surgery Additional Past Surgical History / Comment(s): Right shoulder surgery, left inguinal hernia. Past Anesthesia/Blood Transfusion Reactions: No Reported Reaction Past Psychological History: Anxiety, Depression, PTSD Smoking Status: Former smoker Past Alcohol Use History: None Reported Additional Past Alcohol Use History / Comment(s): Quit smoking 16 yrs ago. Past Drug Use History: Marijuana Additional Drug Use History / Comment(s): Marijuana use daily. Aware no use 24 hrs prior to procedure. - Past Family History Mother Family Medical History: No Reported History Medications and Allergies Home Medications Medication Instructions Recorded Confirmed Type Cyclobenzaprine [Flexeril] 10 mg PO TID PRN 02/16/24 02/21/24 History HYDROcodone/APAP 5-325MG [[place] 1 tab PO TID PRN 02/16/24 02/21/24 History 5-325] Sertraline HCl 150 mg PO PC-LUNCH 02/16/24 02/21/24 History HYDROcodone/APAP 10-325MG [[place] 1 tab PO Q4HR PRN #42 tab 02/24/24 Rx 10-325] Sennosides-Docusate Sodium 2 tab PO DAILY #30 tablet 02/24/24 Rx [Senokot-S] diazePAM [Valium] 2 mg PO Q8HR PRN 3 Days #9 tab 02/25/24 Rx Sertraline [Zoloft] 200 mg PO DAILY 11/14/24 11/14/24 History Allergies Allergy/AdvReac Type Severity Reaction Status Date / Time No Known Allergies Allergy Verified 02/21/24 06:10 Physical Exam Vitals: Vital Signs Temp Pulse Resp BP Pulse Ox 11/14/24 10:10 97.9 F 52 L 16 131/81 98 Intake and Output 11/13/24 11/14/24 11/14/24 22:59 06:59 14:59 Other: Weight 83.007 kg Sleep Note - Sleep Data ESS Total: 11 - Sleep Note Sleep Note: Temperature: 97.9 F Pulse Rate: 52 Respiratory Rate: 16 Blood Pressure: 131/81 SpO2: 98 Height: 5 ft 4 in Weight: 83.007 kg BMI: Neck Circumference: 16.5
== END ==
LOC: 3 N SLEEP 09:56
PROVIDERS: ATTEND Internal Medicine
DX: G47.33 Obstructive sleep apnea (adult) (pediatric) (principal); F43.10 Post-traumatic stress disorder, unspecified; E66.9 Obesity, unspecified; F12.90 Cannabis use, unspecified, uncomplicated; Z68.31 Body mass index [BMI] 31.0-31.9, adult; Z98.1 Arthrodesis status; Z99.89 Dependence on other enabling machines and devices; Z96.611 Presence of right artificial shoulder joint
CPT/HCPCS: 99211